=== PATIENT | female | born 1935 | race Caucasian/White ===

== ENCOUNTER 2018-07-07 09:22 | Emergency (ER) | payer MEDICARE, OTHER ==
[~2018-07-07] VITALS: Ht 157.5 cm; Wt 81.8 kg
[2018-07-07] MEDS ORDERED: CALC-1009 PO (09:35)
[2018-07-07] MEDS ORDERED: LISI1TAB9 PO (09:35)
[2018-07-07] MEDS ORDERED: METO50 PO (09:35)
[2018-07-07] MEDS ORDERED: APIX2.5T PO (09:35)
[2018-07-07 11:41] VITALS: BP 142/84
== END 2018-07-07 11:47 | disposition home or self-care (01) ==
LOC: EMS 09:23
DX: S00.83XA Contusion of other part of head, initial encounter (principal); S50.12XA Contusion of left forearm, initial encounter; S80.12XA Contusion of left lower leg, initial encounter; I10 Essential (primary) hypertension; Z88.0 Allergy status to penicillin; Z79.899 Other long term (current) drug therapy; W01.198A Fall on same level from slipping, tripping and stumbling with subsequent striking against other object, initial encounter; Y93.89 Activity, other specified; Y92.89 Other specified places as the place of occurrence of the external cause; Y99.8 Other external cause status
CPT/HCPCS: 70450; 70486